=== PATIENT | female | born 1990 | race Caucasian/White ===

== ENCOUNTER 2019-01-25 16:45 | Emergency (ER) | payer MEDICAID ==
--- NOTE | 2019-01-25 16:59 | NUR ---
PT LEFT BEFORE TRIAGE PER REGISTRATION
== END 2019-01-25 17:00 | disposition left against medical advice (07) ==
LOC: ER 16:46
DX: K04.7 Periapical abscess without sinus (principal); Z53.21 Procedure and treatment not carried out due to patient leaving prior to being seen by health care provider